=== PATIENT | male | born 1970 | race Caucasian/White ===

== ENCOUNTER 2020-07-15 15:44 | Emergency (ER) | payer BC, SELFPAY ==
[2020-07-15 15:46] VITALS: BP 164/100; PULSE 88; RESP 15; TEMP 36.4; O2SAT 98; BMI 28.7
[2020-07-15 15:57] VITALS: BP 180/110
--- NOTE | 2020-07-15 16:01 | EKG12_ITS ---
Test Reason : HEADACHE Blood Pressure : / mmHG Vent. Rate : 087 BPM Atrial Rate : 087 BPM P-R Int : 166 ms QRS Dur : 088 ms QT Int : 362 ms P-R-T Axes : 036 050 005 degrees QTc Int : 435 ms Normal sinus rhythm Normal ECG Confirmed by REJI GARCIA, TERRENCE ([id number]), staff editor KEVEN MORALES ([id number]) on 07/18/2020 12:26:47 PM Referred By: RU Confirmed By:TERRENCE MENDOZA MD
--- NOTE | 2020-07-15 16:02 | CT_ITS ---
EXAM: CT ANGIOGRAPHY HEAD AND NECK WITH INTRAVENOUS CONTRAST CLINICAL INDICATION: headaches, hypertension TECHNIQUE: [place] [facility] [place]/head and neck CT angiography protocol performed with intravenous contrast. This CT exam was performed using one or more of the following dose reduction techniques: automated exposure control, adjustment of the mA and/or kV according to patient size, and/or use of iterative reconstruction technique. This report was created using [employer] report generation technology. MIP reconstructed images were created and reviewed. CONTRAST: IV 100mL [id number] COMPARISON: None. FINDINGS: HEAD: Ventricular system is normal for age. No masses, mass effects or shift of midline structures. No acute intracranial hemorrhage, obvious infarction or abnormal collection of extra-axial fluid. Visualized paranasal sinuses are unremarkable. RIGHT ANTERIOR CEREBRAL ARTERY: Unremarkable. No significant stenosis at the visualized segments. Anterior communicating artery is present. No aneurysm. RIGHT MIDDLE CEREBRAL ARTERY: Unremarkable. No significant stenosis at the visualized segments. No aneurysm. RIGHT POSTERIOR CEREBRAL ARTERY: Unremarkable. No occlusion or significant stenosis. No aneurysm. LEFT ANTERIOR CEREBRAL ARTERY: Unremarkable. No significant stenosis at the visualized segments. No aneurysm. LEFT MIDDLE CEREBRAL ARTERY: Unremarkable. No significant stenosis at the visualized segments. No aneurysm. LEFT POSTERIOR CEREBRAL ARTERY: Unremarkable. No occlusion or significant stenosis. No aneurysm. BASILAR ARTERY: Unremarkable. No significant stenosis. No aneurysm. GREAT VESSELS OF AORTIC ARCH: Unremarkable. Normal anatomy, patent. OTHER VASCULATURE: No vascular malformation. NECK: RIGHT COMMON CAROTID ARTERY: Unremarkable. No significant stenosis. No dissection or occlusion. RIGHT INTERNAL CAROTID ARTERY: Unremarkable. No significant stenosis. No dissection or occlusion. RIGHT EXTERNAL CAROTID ARTERY: Unremarkable. No occlusion. RIGHT VERTEBRAL ARTERY: Unremarkable. No significant stenosis. No dissection or occlusion. LEFT COMMON CAROTID ARTERY: Unremarkable. No significant stenosis. No dissection or occlusion. LEFT INTERNAL CAROTID ARTERY: Unremarkable. No significant stenosis. No dissection or occlusion. LEFT EXTERNAL CAROTID ARTERY: Unremarkable. No occlusion. LEFT VERTEBRAL ARTERY: Dominant left vertebral artery. No significant stenosis. No dissection or occlusion. OROPHARYNX: Calcifications of the bilateral palatine tonsils likely sequela of previous infection/inflammation. LUNG APICES: Unremarkable as visualized. SOFT TISSUES: Unremarkable. CAROTID STENOSIS REFERENCE USING NASCET CRITERIA: % ICA stenosis = (1 - narrowest ICA diameter/diameter of distal cervical ICA) x 100. Mild - <50% stenosis. Moderate - 50-69% stenosis. Severe - 70-94% stenosis. Near occlusion - 95-99% stenosis. Occluded - 100% stenosis. CT/CTA Head AND Neck W/ Contrast IMPRESSION: No acute findings in the arteries of the head and neck. Electronically Signed: Lamine Multani MD ([place]) at 17:11 EST , Service support ,
[2020-07-15 16:11] VITALS: BP 157/100; PULSE 97; RESP 25; O2SAT 98
[2020-07-15] MEDS: 0.9% Normal Saline 1,000 ML 150 ML IV (16:11)
[2020-07-15 16:20] LABS: Absolute Neutrophil Count 3.6 X10^3/uL (2.0-7.7); Basophil# 0.05 X10^3/uL; Basophil% 0.7 % (0-1); Eosinophil# 0.19 X10^3/uL; Eosinophils% 2.7 % (0-5); Hematocrit 46.7 % (40-54); Hemoglobin 15.8 g/dL (13.0-16.5); Lymphocyte % 33.1 % (19-41); Mean Corp Hgb Conc 33.8 g/dL (32-36); Mean Corpuscular Hgb 31.5 pg (27.0-32.0); Mean Platelet Vol. 9.2 fl (6.2-12.0); Monocyte# 0.84 X10^3/uL; Monocyte% 12.1 % (0-10); NRBC Flagged by Analyzer 0 % (0-5); Neutrophil # 3.56 X10^3/uL (2.7-7.7); Neutrophil % 51.3 % (47-70); Platelet Count 199 K/mm3 (150-450); RBC Distribution Width CV 11.9 % (11.6-14.6); RBC Distribution Width SD 40.5 fl (35.1-43.9); Red Blood Count 5.02 M/mm3 (4.6-6.2)
[2020-07-15 16:40] LABS: Anion Gap 7 (5-15); BUN 10 mg/dL (7-18); BUN/Creat Ratio 9.3 RATIO (10-20); Calcium,Total 9.5 mg/dL (8.5-10.1); Chloride 99 mmol/L (98-107); Creatinine, Serum 1.08 mg/dL (0.70-1.30); EST Glomerular Filtration Rate 77 mL/min (>60); Est Glom Filt Rate - Afr Amer 93 mL/min (>60); Estimated Creatinine Clearance 79.17 ml/min; Glucose 118 mg/dL (74-106); Potassium 3.6 mmol/L (3.5-5.1); Sodium Level 135 mmol/L (136-145)
--- NOTE | 2020-07-15 16:44 | ED.DCSUM_ITS ---
- ER Visit Summary Date of Service: 07/15/20 Chief Complaint: [Headache] History of Present Illness: The patient is a 49 M [presents to the emergency department complaint of a headache for the last 4 days. Patient states that the pain came on gradually. Patient states that typically in the mornings it feels pretty good and does not typically wake up with a headache but then throughout the day progresses and worsens as he is up and moving. Patient describes pain at the base of his neck and then wrapping around to the front of his head. Patient went yesterday and got tested for Covid because of the headache and however he is had no other Covid symptoms. His Covid test was negative. Patient describes some nausea but no vomiting. Denies any photophobia. He is never had a headache like this before. Patient states that 4 months ago he started checking his blood pressure and noted that it was elevated and recently got placed on blood pressure medication. Patient denies any chest pain or shortness of breath. There is no family history of brain tumors or brain aneurysms. Patient states currently the headache is a 7 out of 10.] Physical Examination: [HEENT-PERRLA, EOMI. Cranial nerves II through XII grossly intact. TMs clear. Mucous membranes moist. No adenopathy. Cardiovascular-regular rate and rhythm without murmur or ectopy Lungs-clear to auscultation, chest wall stable without crepitus or subcu emphysema Abdomen-normoactive bowel sounds, soft, nontender, no rebound or rigidity, no peritoneal signs. Neuro tswv-gbkbfc-ffsy and heel lerma testing within normal limits, negative Romberg, negative pronator drift, fundi benign Extremities-intact ?4, normal range of motion, normal pulses, atraumatic] Test Results: [CBC with differential obtained on arrival was normal. Chemistries unremarkable. Troponin less than 0.015.] CTA of head and neck read by radiology as normal. Emergency Department Course and Treatment: [IV line established on arrival. Patient was given Reglan, Benadryl, and Toradol as well as a liter normal same fluid bolus. Patient had some mild improvement in his headache. At this point etiology is unclear for his headache and he does not anything more for pain. Patient does state that couple days ago he did have some discomfort in his neck and spasm and is wondering if this could all be tension related.] Treatment Plan: [We will be treated with Flexeril and advised to follow-up with his primary care physician within next 3 to 5 days. Patient advised to return if worsening headache, difficulty with balance or speech or vomiting or condition should worsen anyway.] Disposition: [Discharged home in stable condition] Impression: [Headache-etiology uncertain] This note was generated with [employer] dictation software. It may contain incorrect words, spelling, and punctuation that were not noted in review of the chart prior to signing ED Disposition - Plan for ED Patient: Referrals: Care Physician,No Primary [Primary Care Provider] -
[2020-07-15] MEDS: 0.9% Normal Saline 1,000 ML 999 ML IV (17:15)
[2020-07-15] MEDS: DiphenhydrAMINE 50 MG/ML Syringe 25 MG IV (17:28)
[2020-07-15] MEDS: Ketorolac 30 MG/ML Syringe IV (17:29)
[2020-07-15] MEDS: Metoclopramide 10 MG/2 ML Vial IV (17:29)
[2020-07-15 17:33] VITALS: BP 149/94; PULSE 56; RESP 19; O2SAT 95
[2020-07-15 18:08] VITALS: BP 132/86; PULSE 85; RESP 23; O2SAT 94
--- NOTE | 2020-07-15 18:28 | ED.DEP ---
ED Disposition - Plan for ED Patient: Instructions: ED Headache Unspecified, ED Headache, Tension Prescriptions: cycloBENZAPRine HCl [Flexeril] 10 mg PO TID PRN #20 tab PRN Reason: Muscle Spasm Transmission Status: Pending to [id number] Referrals: Care Physician,No Primary [Primary Care Provider] - 3-5 Days
[2020-07-15] MEDS: cycloBENZAPRine HCl 10 MG Tablet PO (18:52)
[2020-07-15 18:53] VITALS: BP 136/75; PULSE 76; RESP 18; O2SAT 95
== END 2020-07-15 18:57 | disposition home or self-care (01) ==
PROVIDERS: Emergency Provider Emergency Medicine
DX: R51.9 Headache, unspecified (principal); I10 Essential (primary) hypertension; Z79.899 Other long term (current) drug therapy
CPT/HCPCS: 70496; 70498; 80048; 84484; 85025; 93005; 96361; 96374; 96375; 99284; J7030; Q9967; A4216